=== PATIENT | male | born 1960 | race Caucasian/White ===

== ENCOUNTER → 2018-09-18 | Outpatient (CLI) | payer OTHER ==
[~2018-09-18] MED LIST: NORCO 10-325 T1 EACH PO; OMNICEF300 MG PO
[2018-09-18 10:12] LABS: BASO # 0.1 10*3/uL (0.0-0.1); BASO % 0.8 % (0.0-1.0); EOS # 0.2 10*3/uL (0.0-0.4); EOS % 2.4 % (1.0-4.0); HEMATOCRIT 41.7 % (42.0-52.0); HEMOGLOBIN 14.1 g/dl (14.0-18.0); LYMPH # 1.9 10*3/uL (1.3-4.4); MEAN CELL VOLUME 94.1 fl (80.0-94.0); MEAN CORPUSCULAR HGB 31.8 pg (27.0-31.0); MEAN CORPUSCULAR HGB CONC 33.8 g/dl (33.0-37.0); MEAN PLATELET VOLUME 10.8 fl (9.6-12.3); MONO # 0.6 10*3/uL (0.1-1.0); MONO % 9.4 % (3.0-9.0); NEUT # 3.5 10*3/uL (2.3-7.9); NEUT % 56.2 % (47.0-73.0); PLATELET COUNT AUTOMATED 294 10*3/uL (130-400); RED BLOOD COUNT 4.43 10*6/uL (4.50-5.90); RED CELL DISTRI WIDTH 12.5 % (0-14.5); WHITE BLOOD COUNT 6.2 10*3/uL (4.8-10.8)
[2018-09-18 10:51] LABS: ALBUMIN 3.6 gm/dl (3.1-4.5); ALKALINE PHOSPHATASE 56 U/L (45-117); BUN 14 mg/dl (7-24); CHLORIDE 105 mmol/L (98-107); CHOLESTEROL 199 mg/dL (<200); POTASSIUM 3.9 mmol/L (3.5-5.1); SGOT/AST 23 IU/L (3-35); SGPT/ALT 48 U/L (12-78); SODIUM 138 mmol/L (136-145); TOTAL PROTEIN 7.3 gm/dL (6.4-8.2); TRIGLYCERIDES 186 mg/dl (<150); VLDL CHOLESTEROL 37 mg/dL (6-40)
[2018-09-18 10:54] LABS: HDL CHOLESTEROL 55 mg/dl (40-60); LDL CHOLESTEROL 107 mg/dL (9-159)
== END | disposition home or self-care (01) ==
LOC: LAB 09:26
PROVIDERS: Family Medicine
DX: Z12.5 Encounter for screening for malignant neoplasm of prostate (principal); E78.00 Pure hypercholesterolemia, unspecified; I10 Essential (primary) hypertension

== ENCOUNTER 2019-04-11 21:45 | Inpatient (IN) | payer SELFPAY ==
[2019-04-11] VITALS (7 sets, daily range): BP systolic 78–101; BP diastolic 40–58
[~2019-04-11] VITALS: Ht 172.7 cm; Wt 83.1 kg
--- NOTE | ~2019-04-11 | EKG ---
[place], [place] ELECTROCARDIOGRAM REPORT NAME: VIC IRIZARRY UNIT #: [id number] ROOM: 425 DOCTOR: GEOVANY DRAFT REPORT BIRTHDATE: [birth year] [facility] Test Date: 2019-04-11 Test Time: 21:58:37 Pat Name: VIC IRIZARRY Department: Room: 425 Gender: M Bearingizer: : 1960 Requested By: MAGGI SANCHEZ Order Number: [id number] Reading MD: Andrew Calvert MD Measurements Intervals [place] Rate: 83 P: 47 CT: 197 QRS: 3 QRSD: 108 T: 25 QT: 394 QTc: 463 Interpretive Statements Sinus rhythm Low voltage, precordial leads Electronically Signed On 04-23-2019 7:32:11 PDT by Andrew Calvert MD CM:EKGRPT:ELECTROCARDIOGRAM REPORT [id number] MAGGI LEIVA DRAFT REPORT MAGGI SANCHEZ DO
--- NOTE | ~2019-04-11 | EKG ---
[place], [place] ELECTROCARDIOGRAM REPORT NAME: VIC IRIZARRY UNIT #: [id number] ROOM: 425 DOCTOR: GEOVANY DRAFT REPORT BIRTHDATE: [birth year] [facility] Test Date: 2019-04-12 Test Time: 03:43:49 Pat Name: VIC IRIZARRY Department: Room: 425 Gender: M Teletype Operator: Roula Herring : 1960 Requested By: MAGGI SANCHEZ Order Number: [id number] Reading MD: Andrew Calvert MD Measurements Intervals [place] Rate: 81 P: 8 DC: 198 QRS: -13 QRSD: 89 T: 48 QT: 372 QTc: 432 Interpretive Statements Sinus rhythm Abnormal R-wave progression, early transition Electronically Signed On 04-23-2019 7:32:53 PDT by Andrew Calvert MD CM:EKGRPT:ELECTROCARDIOGRAM REPORT [id number] MAGGI LEIVA DRAFT REPORT MAGGI SANCHEZ DO
--- NOTE | ~2019-04-11 | EKG ---
[place], [place] ELECTROCARDIOGRAM REPORT NAME: VIC IRIZARRY UNIT #: [id number] ROOM: 425 DOCTOR: GEOVANY DRAFT REPORT BIRTHDATE: [birth year] [facility] Test Date: 2019-04-11 Test Time: 21:52:39 Pat Name: VIC IRIZARRY Department: Room: 425 Gender: M Ergonomist: : 1960 Requested By: MAGGI SANCHEZ Order Number: [id number] Reading MD: Andrew Calvert MD Measurements Intervals [place] Rate: 77 P: 12 VA: 203 QRS: 3 QRSD: 97 T: 26 QT: 396 QTc: 449 Interpretive Statements Sinus rhythm Borderline prolonged VA interval Abnormal R-wave progression, early transition Electronically Signed On 04-23-2019 7:31:51 PDT by Andrew Calvert MD CM:EKGRPT:ELECTROCARDIOGRAM REPORT [id number] MAGGI LEIVA DRAFT REPORT MAGGI SANCHEZ DO
--- NOTE | ~2019-04-11 | EKG ---
[place], [place] ELECTROCARDIOGRAM REPORT NAME: VIC IRIZARRY UNIT #: [id number] ROOM: 425 DOCTOR: GEOVANY DRAFT REPORT BIRTHDATE: [birth year] [facility] Test Date: 2019-04-12 Test Time: 00:48:13 Pat Name: VIC IRIZARRY Department: Room: 425 Gender: M Veterinary Practice Manager: ANDRES : 1960 Requested By: MAGGI SANCHEZ Order Number: [id number] Reading MD: Andrew Calvert MD Measurements Intervals [place] Rate: 83 P: 13 IA: 196 QRS: 0 QRSD: 94 T: 24 QT: 370 QTc: 435 Interpretive Statements Sinus rhythm Early R wave progression Posterior infarct, old Electronically Signed On 04-23-2019 7:32:46 PDT by Andrew Calvert MD CM:EKGRPT:ELECTROCARDIOGRAM REPORT [id number] MAGGI LEIVA DRAFT REPORT MAGGI SANCHEZ DO
[2019-04-11] MEDS ORDERED: ENALAPRIL MALEA20 MG PO (22:02)
[2019-04-11] MEDS ORDERED: OMEPRAZOLE40 MG PO (22:02)
[2019-04-11] MEDS ORDERED: METOPROLOL SUCC25 M2 PO (22:02)
[2019-04-11] MEDS ORDERED: ASPIRIN325 M2 PO (22:03)
[2019-04-11 22:14] LABS: BASO # 0.1 10*3/uL (0.0-0.1); BASO % 0.6 % (0.0-1.0); EOS # 0.3 10*3/uL (0.0-0.4); EOS % 3.2 % (1.0-4.0); HEMATOCRIT 42.4 % (42.0-52.0); HEMOGLOBIN 13.7 g/dl (14.0-18.0); LYMPH # 2.3 10*3/uL (1.3-4.4); LYMPH % 27.6 % (27.0-41.0); MEAN CELL VOLUME 98.1 fl (80.0-94.0); MEAN CORPUSCULAR HGB 31.7 pg (27.0-31.0); MEAN CORPUSCULAR HGB CONC 32.3 g/dl (33.0-37.0); MEAN PLATELET VOLUME 10.7 fl (9.6-12.3); MONO # 0.7 10*3/uL (0.1-1.0); NEUT # 5.1 10*3/uL (2.3-7.9); NEUT % 60.4 % (47.0-73.0); PLATELET COUNT AUTOMATED 291 10*3/uL (130-400); RED BLOOD COUNT 4.32 10*6/uL (4.50-5.90); WHITE BLOOD COUNT 8.4 10*3/uL (4.8-10.8)
[2019-04-11 22:29] LABS: ACT PARTIAL THROMBO TIME 22.8 SECONDS (20.0-32.1); INTERNATIONAL NORM RATIO 0.9 (2.0-3.5)
[2019-04-11 22:35] LABS: ALBUMIN 3.5 gm/dl (3.1-4.5); ALKALINE PHOSPHATASE 54 U/L (45-117); BUN 11 mg/dl (7-24); CHLORIDE 111 mmol/L (98-107); POTASSIUM 3.9 mmol/L (3.5-5.1); SGOT/AST 13 IU/L (3-35); SGPT/ALT 40 U/L (12-78); SODIUM 141 mmol/L (136-145); TOTAL PROTEIN 6.6 gm/dL (6.4-8.2); TROPONIN I < 0.015 ng/ml (<0.045)
--- NOTE | 2019-04-11 23:27 | NUR ---
NOTIFIED BY LAB PTS LACTIC ACID 2.5 DR SANCHEZ NOTIFIED.
--- NOTE | 2019-04-11 23:29 | NUR ---
MANUAL BP OBTAINED OF /56.MD SANCHEZ NOTIFIED.
--- NOTE | 2019-04-11 23:39 | NUR ---
SECOND LITER NS INITIATED.
[2019-04-12 00:11] VITALS: BP 104/68
--- NOTE | 2019-04-12 00:34 | NUR ---
PT REPORTS RASH OF POISON EN[place] ON BILATERAL ARMS.DENIES ANY OPEN WOUNDS.
--- NOTE | 2019-04-12 00:50 | NUR ---
3RD BAG NS INITIATED.
[2019-04-12 00:55] VITALS: BP 117/71
--- NOTE | 2019-04-12 00:55 | NUR ---
ARRIVED TO FLOOR VIA CART ESCORTED BY MUSHROOM GROWTH MEDIA MIXER AND PATIENT . PATIENT ALERT, CONVERSING, AND PLEASANT, AMBULATED TO RESTROOM AND THEN BED ON OWN. INITIAL ASSESSMENT AND VITAL SIGNS OBTAINED, PATIENT AND ORIENTED TO ROOM, FLOOR AND VISITING HOURS. ADMISSION PAPERWORK SIGNED BY . PATIENT EDUCATED ON USE OF CALL LIGHT AND BED ALARM IN USE DUE TO RECENT ALCOHOL INTAKE AND UNRESPONSIVENESS. RASH NOTED TO BILATERAL ARMS PATIENT STATED THAT IT WAS POISON [place] THAT HE HAD CONTRACTED SEVERAL DAYS AGO AT HOME WHEN THE NEIGHBOR WAS CUTTING IT OFF OF THE FENCE.
[2019-04-12 01:14] LABS: BILIRUBIN NEGATIVE (NEGATIVE); BLOOD NEGATIVE (NEGATIVE); CLARITY SL CLOUDY (CLEAR); COLOR YELLOW (YELLOW); GLUCOSE NEGATIVE (NEGATIVE); KETONE TRACE (NEGATIVE); LEUKO ESTERASE NEGATIVE (NEGATIVE); NITRITE NEGATIVE (NEGATIVE)
[2019-04-12 01:22] LABS: URINE AMPHETAMINES < 1000 (1000ng/ml); URINE BARBITURATES > 200 (200ng/ml); URINE BENZODIAZEPINES < 200 (200ng/ml); URINE CANNABINOIDS (THC) > 50 (50ng/ml); URINE COCAINE < 300 (300ng/ml); URINE METHADONE < 300 (300ng/ml); URINE OPIATES < 300 (300ng/ml)
[2019-04-12 01:24] LABS: URINE PHENCYCLIDINE < 25 (25ng/ml)
[2019-04-12 01:26] LABS: EPITHELIAL CELLS 15-20
[2019-04-12 08:37] LABS: BASO % 0.2 % (0.0-1.0); EOS # 0.2 10*3/uL (0.0-0.4); EOS % 2.4 % (1.0-4.0); HEMATOCRIT 38.2 % (42.0-52.0); HEMOGLOBIN 12.4 g/dl (14.0-18.0); LYMPH # 2.1 10*3/uL (1.3-4.4); LYMPH % 23.6 % (27.0-41.0); MEAN CELL VOLUME 96.2 fl (80.0-94.0); MEAN CORPUSCULAR HGB 31.2 pg (27.0-31.0); MEAN CORPUSCULAR HGB CONC 32.5 g/dl (33.0-37.0); MEAN PLATELET VOLUME 10.7 fl (9.6-12.3); MONO # 0.9 10*3/uL (0.1-1.0); MONO % 10.1 % (3.0-9.0); NEUT # 5.6 10*3/uL (2.3-7.9); NEUT % 63.5 % (47.0-73.0); PLATELET COUNT AUTOMATED 268 10*3/uL (130-400); RED BLOOD COUNT 3.97 10*6/uL (4.50-5.90); RED CELL DISTRI WIDTH 13.2 % (0-14.5); WHITE BLOOD COUNT 8.9 10*3/uL (4.8-10.8)
[2019-04-12 09:05] LABS: CHLORIDE 115 mmol/L (98-107); POTASSIUM 3.9 mmol/L (3.5-5.1); SODIUM 144 mmol/L (136-145)
[2019-04-12 09:25] LABS: BUN 9 mg/dl (7-24); CREATININE 0.97 mg/dL (0.70-1.30); THYROID STIM HORMONE (HS) 0.977 uIU/ml (0.358-4.75)
[2019-04-12 10:51] LABS: VITAMIN D, 25-HYDROXY 29.9 ng/mL (30-100)
[2019-04-12 12:00] VITALS: BP 183/93
[2019-04-12 12:17] VITALS: BP 184/98
--- NOTE | 2019-04-12 12:17 | NUR ---
DR GUTIERREZ NOTIFIED OF PT BLOOD PRESSURE OF 184/98 MANUALLY. ORDERS GIVEN TO CONTINUE PT VASOTEC AND METOPROLOL SUCCINATE HOME MEDICATIONS. ORDERS OBTAINED TO GIVE EACH MEDICATION NOW. WILL MEDICATE WHEN ABLE TO PULL MED FROM [facility].
--- NOTE | 2019-04-12 14:30 | NUR ---
DR GUTIERREZ NOTIFIED OF ORTHOSTATIC BLOOD PRESSURE READINGS.
[2019-04-12 16:00] VITALS: BP 175/94
[2019-04-12] MEDS ORDERED: PREDNISONE10 MG PO (16:28)
[2019-04-12] MEDS ORDERED: AVPAK AZITHROM250 MG PO (16:28)
--- NOTE | 2019-04-12 17:01 | NUR ---
Discharge instructions reviewed with patient/family. Patient receptive and verbalizes understanding. Follow-up care arranged. Written instructions given to patient/family. ÁNGEL KRISHNA
== END 2019-04-12 18:43 | disposition home or self-care (01) | DRG 314 ==
LOC: ED 21:45 → EDHOLD 04-12 00:02 → 4E 04-12 00:02
PROVIDERS: Internal Medicine; Student in an Organized Health Care Education/Training Program; ADMIT Internal Medicine
DX: I95.9 Hypotension, unspecified (principal); N17.0 Acute kidney failure with tubular necrosis; E87.2 Acidosis; E86.0 Dehydration; F10.10 Alcohol abuse, uncomplicated; L23.7 Allergic contact dermatitis due to plants, except food; D53.9 Nutritional anemia, unspecified; E73.9 Lactose intolerance, unspecified; E83.41 Hypermagnesemia; R73.9 Hyperglycemia, unspecified; E87.8 Other disorders of electrolyte and fluid balance, not elsewhere classified; F17.200 Nicotine dependence, unspecified, uncomplicated; F12.10 Cannabis abuse, uncomplicated; I10 Essential (primary) hypertension; K21.9 Gastro-esophageal reflux disease without esophagitis; F10.120 Alcohol abuse with intoxication, uncomplicated; E55.9 Vitamin D deficiency, unspecified; Z71.6 Tobacco abuse counseling; Z79.82 Long term (current) use of aspirin; Z79.899 Other long term (current) drug therapy; Z83.3 Family history of diabetes mellitus

== ENCOUNTER → 2019-07-30 | Outpatient (CLI) | payer SELFPAY ==
[~2019-07-30] MED LIST changes: +ASPIRIN325 M2 PO; +AVPAK AZITHROM250 MG PO; +ENALAPRIL MALEA20 MG PO; +METOPROLOL SUCC25 M2 PO; +OMEPRAZOLE40 MG PO; +PREDNISONE10 MG PO
== END | disposition home or self-care (01) ==
LOC: ORTHO 01:50
DX: M25.511 Pain in right shoulder (principal)

== ENCOUNTER → 2020-06-13 | Outpatient (CLI) | payer BC ==
[2020-06-13 11:33] LABS: HEMATOCRIT 42.3 % (42.0-52.0); MEAN CELL VOLUME 94.2 fl (80.0-94.0); MEAN CORPUSCULAR HGB 31.4 pg (27.0-31.0); MEAN CORPUSCULAR HGB CONC 33.3 g/dl (33.0-37.0); MEAN PLATELET VOLUME 10.4 fl (9.6-12.3); RED BLOOD COUNT 4.49 10*6/uL (4.50-5.90); RED CELL DISTRI WIDTH 12.8 % (0-14.5); WHITE BLOOD COUNT 13.8 10*3/uL (4.8-10.8)
[2020-06-13 11:50] LABS: ALBUMIN 3.7 gm/dl (3.1-4.5); ALKALINE PHOSPHATASE 58 U/L (45-117); BUN 14 mg/dl (7-24); CHLORIDE 106 mmol/L (98-107); CHOLESTEROL 179 mg/dL (<200); CREATININE 0.99 mg/dL (0.70-1.30); HDL CHOLESTEROL 63 mg/dl (40-60); LDL CHOLESTEROL 86 mg/dL (9-159); POTASSIUM 3.9 mmol/L (3.5-5.1); SGOT/AST 21 IU/L (3-35); SGPT/ALT 44 U/L (12-78); SODIUM 140 mmol/L (136-145); TOTAL PROTEIN 7.3 gm/dL (6.4-8.2); TRIGLYCERIDES 150 mg/dl (<150); VLDL CHOLESTEROL 30 mg/dL (6-40)
[2020-06-13 12:37] LABS: VITAMIN D, 25-HYDROXY 31.3 ng/mL (30-100)
== END | disposition home or self-care (01) ==
LOC: LAB 10:58
PROVIDERS: ATTEND Family Medicine
DX: Z12.5 Encounter for screening for malignant neoplasm of prostate (principal); I10 Essential (primary) hypertension; E78.00 Pure hypercholesterolemia, unspecified; J40 Bronchitis, not specified as acute or chronic

== ENCOUNTER → 2020-07-21 | Outpatient (CLI) | payer BC | END | disposition home or self-care (01) | LOC: COVID19 15:29 | PROVIDERS: ATTEND Family Medicine | DX: Z20.828 Contact with and (suspected) exposure to other viral communicable diseases (principal) ==

== ENCOUNTER → 2022-01-01 | Outpatient (CLI) | payer OTHER ==
[2022-01-01 09:34] LABS: HEMATOCRIT 42.2 % (42.0-52.0); MEAN CELL VOLUME 93.2 fl (80.0-94.0); MEAN CORPUSCULAR HGB 31.8 pg (27.0-31.0); MEAN CORPUSCULAR HGB CONC 34.1 g/dl (33.0-37.0); MEAN PLATELET VOLUME 9.8 fl (9.6-12.3); RED BLOOD COUNT 4.53 10*6/uL (4.50-5.90); RED CELL DISTRI WIDTH 12.6 % (0-14.5); WHITE BLOOD COUNT 5.9 10*3/uL (4.8-10.8)
[2022-01-01 09:51] LABS: ALKALINE PHOSPHATASE 51 U/L (45-117); BUN 13 mg/dl (7-24); CHLORIDE 107 mmol/L (98-107); CHOLESTEROL 151 mg/dL (<200); CREATININE 0.92 mg/dL (0.70-1.30); LDL CHOLESTEROL 75 mg/dL (9-159); POTASSIUM 4.1 mmol/L (3.5-5.1); SGOT/AST 19 IU/L (3-35); SGPT/ALT 45 U/L (12-78); SODIUM 137 mmol/L (136-145); TOTAL PROTEIN 6.9 gm/dL (6.4-8.2); TRIGLYCERIDES 105 mg/dl (<150)
[2022-01-01 10:55] LABS: VITAMIN D, 25-HYDROXY 24.7 ng/mL (30-100)
== END | disposition home or self-care (01) ==
LOC: LAB 09:20
PROVIDERS: ATTEND Family Medicine
DX: I10 Essential (primary) hypertension (principal); E55.9 Vitamin D deficiency, unspecified; E78.00 Pure hypercholesterolemia, unspecified

== ENCOUNTER → 2022-08-04 | Outpatient (CLI) | payer OTHER ==
[2022-08-04 09:46] LABS: HEMATOCRIT 48.5 % (42.0-52.0); MEAN CELL VOLUME 95.1 fl (80.0-94.0); MEAN CORPUSCULAR HGB 32.4 pg (27.0-31.0); MEAN PLATELET VOLUME 10.2 fl (9.6-12.3); RED BLOOD COUNT 5.1 10*6/uL (4.50-5.90); RED CELL DISTRI WIDTH 12.6 % (0-14.5); WHITE BLOOD COUNT 5.3 10*3/uL (4.8-10.8)
[2022-08-04 10:13] LABS: ALKALINE PHOSPHATASE 57 U/L (46-116); BUN 11 mg/dl (9-23); CHLORIDE 102 mmol/L (98-107); CHOLESTEROL 174 mg/dL (<200); CREATININE 0.92 mg/dL (0.70-1.30); LDL CHOLESTEROL 100 mg/dL (9-159); POTASSIUM 4.1 mmol/L (3.4-5.1); SGPT/ALT 37 U/L (10-49); SODIUM 138 mmol/L (136-145); TOTAL PROTEIN 7.6 gm/dL (6.0-8.0); TRIGLYCERIDES 78 mg/dl (<150)
== END | disposition home or self-care (01) ==
LOC: LAB 09:15
PROVIDERS: ATTEND Family Medicine
DX: E78.00 Pure hypercholesterolemia, unspecified (principal); E74.9 Disorder of carbohydrate metabolism, unspecified